=== PATIENT | female | born 1980 | race Two or more races ===

== ENCOUNTER 2019-07-12 11:45 | Inpatient (IN) | payer OTHER ==
[~2019-07-12] VITALS: Ht 165.1 cm; Wt 88.9 kg
[~2019-07-12 11:45] MED LIST: COZAAR100 MG; PNEU16DI2
[2019-07-12] MEDS ORDERED: COZAAR50 MG PO (13:45)
== END 2019-07-20 12:16 | DRG 734 ==
LOC: O/R 11:45 → OB/GYN 07-18 05:05 → RECOVERY 07-18 07:00 → OB/GYN 07-18 11:22 → RECOVERY 07-18 11:45 → OB/GYN 07-20 12:16
PROVIDERS: ADMIT Obstetrics & Gynecology Gynecologic Oncology
PROC: 0UT50ZZ Resection of Right Fallopian Tube, Open Approach (ICD-10-PCS; 2019-07-18)
PROC: 0UT00ZZ Resection of Right Ovary, Open Approach (ICD-10-PCS; 2019-07-18)
PROC: 0DBW0ZZ Excision of Peritoneum, Open Approach (ICD-10-PCS; 2019-07-18)
PROC: 0DTU0ZZ Resection of Omentum, Open Approach (ICD-10-PCS; 2019-07-18)
PROC: 0DTJ0ZZ Resection of Appendix, Open Approach (ICD-10-PCS; 2019-07-18)
PROC: 07TC0ZZ Resection of Pelvis Lymphatic, Open Approach (ICD-10-PCS; principal; 2019-07-18 07:00)
DX: D27.0 Benign neoplasm of right ovary (principal); R18.8 Other ascites; R59.0 Localized enlarged lymph nodes; K36 Other appendicitis; N73.6 Female pelvic peritoneal adhesions (postinfective)

== ENCOUNTER 2021-11-15 13:45 | Emergency (ER) | payer OTHER ==
[~2021-11-15] VITALS: Ht 162.6 cm; Wt 107.5 kg
[~2021-11-15 13:45] MED LIST changes: +COZAAR50 MG PO
[2021-11-15] MEDS ORDERED: PEPCID AC20 MG PO (17:51)
[2021-11-15] MEDS ORDERED: BACTRIM DS TAB1 EACH PO (17:51)
== END 2021-11-15 18:30 | disposition home or self-care (01) ==
LOC: ER 13:45
DX: D25.9 Leiomyoma of uterus, unspecified (principal); N39.0 Urinary tract infection, site not specified; E86.0 Dehydration

== ENCOUNTER 2023-04-28 16:37 | Emergency (ER) | payer OTHER ==
[~2023-04-28] VITALS: Ht 165.1 cm; Wt 99.8 kg
[~2023-04-28 16:37] MED LIST changes: +BACTRIM DS TAB1 EACH PO; +PEPCID AC20 MG PO
[2023-04-28] MEDS ORDERED: LASIX20 MG PO (17:44)
[2023-04-28] MEDS ORDERED: VASOTEC5 MG PO (17:45)
[2023-04-28] MEDS ORDERED: FARXIGA5 MG PO ×2 (17:45→17:47)
[2023-04-28] MEDS ORDERED: CRESTOR5 MG PO (17:47)
[2023-04-28] MEDS ORDERED: RAYOS5 MG PO (17:47)
== END 2023-04-28 20:26 | disposition home or self-care (01) ==
LOC: ER 16:37
DX: H10.33 Unspecified acute conjunctivitis, bilateral (principal); J02.9 Acute pharyngitis, unspecified; Z88.2 Allergy status to sulfonamides; Z88.8 Allergy status to other drugs, medicaments and biological substances; Z91.013 Allergy to seafood